=== PATIENT | female | born 1990 | race Two or more races ===

== ENCOUNTER 2021-10-12 10:48 | Emergency (ER) | payer OTHER ==
[~2021-10-12] VITALS: Ht 170.2 cm; Wt 79.4 kg
[2021-10-12] MEDS ORDERED: MIRENA1 EACH (12:03)
[2021-10-12] MEDS ORDERED: CONCERTA18 MG (12:03)
== END 2021-10-12 13:32 | disposition home or self-care (01) ==
LOC: ER 10:48
DX: M12.571 Traumatic arthropathy, right ankle and foot (principal); X50.1XXA Overexertion from prolonged static or awkward postures, initial encounter; Y93.01 Activity, walking, marching and hiking; Y92.413 State road as the place of occurrence of the external cause